=== PATIENT | male | born 1990 ===

== ENCOUNTER 2024-09-07 11:18 | Emergency (ER) | payer BC ==
[2024-09-07] MEDS: Diphtheria,Pertussis(Acell),Tetanus Vaccine 0.5 ML Syringe IM ONE (11:39)
[2024-09-07] MEDS: Tetracaine HCl/PF 0.5% 4 ML Bottle EYEBOTH ONE (11:39)
== END 2024-09-07 12:54 | disposition home or self-care (01) ==
LOC: MW.ED 11:18
DX: H57.8A2 Foreign body sensation, left eye (principal); Z79.899 Other long term (current) drug therapy; Z75.8 Other problems related to medical facilities and other health care
CPT/HCPCS: 90471; 90715; 99282; 99283-25; J3490